=== PATIENT | male | born 1990 ===

== ENCOUNTER 2017-04-09 13:12 | Emergency (ER) | payer MEDICAID ==
[2017-04-09 13:13] VITALS: BMI 25.5
[2017-04-09 13:24] VITALS: TEMP 98.5; O2SAT 99
--- NOTE | 2017-04-09 13:27 | ED PDOC ---
Arrival/HPI <Devin Fleming P - Last Filed: 04/09/17 14:33> - General Historian: Patient - History of Present Illness Time/Duration: > week Symptom Onset: Gradual Symptom Course: Worsening Quality: Stabbing, Dullness Severity Level: Severe Context: Walking, Other (walking dog) <Levar Gregg - Last Filed: 04/09/17 15:20> - General Chief Complaint: Chest Pain Time Seen by Provider: 04/09/17 13:26 - History of Present Illness Narrative History of Present Illness (Text): 04/09/17 13:59 26yo M with no significant PMHx here for evaluation of right sided chest pain. Pain started 2 weeks ago, gradually getting worse. States that he walks his 60lb dog and does report that his dog jolted while he was on his leash and he started having this pain since. Pain starts in the right side of the chest, radiates to the right shoulder and right mid back. Has been gradually getting worse. Has tried taking an unknown muscle relaxant from his girlfriend, however , has not obtained any relief. Laying down flat on back, and raising right arm makes pain worse. Kaya any numbness or paresthesias. Denies SOB. No N/V/D. No Abd pain. Current pack per day smoker. PMHx: Denies PSHx: Denies Family Hx: Maternal - DM. Denies family cardiac history Social Hx: Current pack per day smoker for 14yrs. Social ETOH. Current marijuana use, no other illicit drugs. Works as taxi cab dispatcher. NKDA (Levar Gregg) Past Medical History - Provider Review Nursing Documentation Reviewed: Yes - Past History Past History: No Previous - Psychiatric Hx Psychophysiologic Disorder: No Hx Substance Use: Yes (daily marijuana) - Past Surgical History Past Surgical History: No Previous - Suicidal Assessment Feels Threatened In Home Enviroment: No <Levar Gregg - Last Filed: 04/09/17 15:20> Family/Social History - Physician Review Nursing Documentation Reviewed: Yes Family/Social History: Diabetes Smoking Status: Heavy Smoker > 10 Cigarettes Daily Hx Alcohol Use: Yes Frequency of alcohol use: Socially Hx Substance Use: Yes (daily marijuana) <Levar Gregg - Last Filed: 04/09/17 15:20> Allergies/Home Meds <Devin Fleming - Last Filed: 04/09/17 14:33> <Levar Gregg - Last Filed: 04/09/17 15:20> Allergies/Adverse Reactions: Allergies No Known Allergies Allergy (Verified 04/09/17 13:24) Review of Systems - Physician Review All systems were reviewed & negative as marked: Yes - Review of Systems Constitutional: Normal Eyes: Normal ENT: Normal Respiratory: Normal Cardiovascular: Chest Pain. absent: Palpitations, Calf Pain, ANNE, Syncope Gastrointestinal: absent: Abdominal Pain, Nausea, Vomiting Musculoskeletal: Back Pain, Myalgias. absent: Neck Pain, Joint Swelling Neurological: absent: Headache, Dizziness Endocrine: absent: Diaphoresis Psychiatric: absent: Anxiety, Depression <Antonina Greggnay - Last Filed: 04/09/17 15:20> Physical Exam Vital Signs Reviewed: Yes Temperature: Afebrile Blood Pressure: Normal Pulse: Regular Respiratory Rate: Normal Appearance: Positive for: Well-Appearing, Non-Toxic Pain Distress: Moderate Mental Status: Positive for: Alert and Oriented X 3 - Systems Exam Head: Present: Atraumatic, Normocephalic Pupils: Present: PERRL Extroacular Muscles: Present: EOMI Conjunctiva: Present: Normal Mouth: Present: Moist Mucous Membranes Respiratory/Chest: Present: Clear to Auscultation, Good Air Exchange, Tender to Palpation. No: Respiratory Distress, Accessory Muscle Use, Wheezes, Rales, Rhonchi Cardiovascular: Present: Regular Rate and Rhythm, Normal S1, S2. No: Murmurs Abdomen: No: Tenderness, Distention, Peritoneal Signs, Rebound, Guarding Back: Present: Paraspinal Tenderness (right mid back. No bony tenderness) Upper Extremity: Present: NORMAL PULSES, Neurovascularly Intact, Other ( Decreased right upper extremity active range of motion due to pain. Tender to palpation of right shoulder. ). No: Edema, Swelling, Temperature Abnormalties, Deformity Lower Extremity: Present: Normal Inspection. No: CALF TENDERNESS Neurological: Present: GCS=15 Skin: Present: Warm, Dry, Normal Color Psychiatric: Present: Alert, Oriented x 3 <MarysolLevar - Last Filed: 04/09/17 15:20> Vital Signs Temp Pulse Resp BP Pulse Ox 04/09/17 13:23 98.5 F 85 16 120/76 99 Medical Decision Making <Devin Fleming - Last Filed: 04/09/17 14:33> <Levar Gregg - Last Filed: 04/09/17 15:20> ED Course and Treatment: Patient Seen With Resident: In agreement with resident note which contains more details about the patient. Patient was seen and evaluated with resident. Came up with plan and treatment together. A 26 year old male with right sided chest pain. Additional HPI as noted by resident. On physical exam, patient has tender to palpation of chest, paraspinal tenderness of back, decreased right upper extremity range of motion and right shoulder tender to palpation. Ordered EKG, chest xray and will give Motrin and Toradol. (Devin Fleming) 04/09/17 14:24 26yo M with musculoskeletal chest pain, back pain, right shoulder pain - EKG - NSR @70. RBBB - CXR - Ibuprofen - Toradol - ice pack to affected area 04/09/17 15:13 CXR - no acute disease 04/09/17 15:14 Discussed findings with patient. All questions and concerns addressed. Patient given naproxyn and baclofen. Patient to follow up with his primary care physician. (Levar Gregg) - RAD Interpretation Radiology Orders: 04/09/17 13:47 CXR [CHEST TWO VIEWS (PA/LAT)] [RAD] Stat - Medication Orders Current Medication Orders: Discontinued Medications Ibuprofen (Motrin Tab) 400 mg PO STAT STA Stop: 04/09/17 13:39 Last Admin: 04/09/17 13:46 Dose: 400 mg Ketorolac Tromethamine (Toradol) 15 mg IM STAT STA Stop: 04/09/17 13:55 Last Admin: 04/09/17 14:26 Dose: 15 mg - Scribe Statement The provider has reviewed the documentation as recorded by the Scribe <Devin Fleming - Last Filed: 04/09/17 14:33> - PA / PROFESSIONAL [employer] / Resident Statement / has reviewed & agrees with the documentation as recorded. / has examined the patient and agrees with the treatment plan. <Levar Gregg - Last Filed: 04/09/17 15:20> - Scribe Statement Alexandra Magana Provider Scribe Attestation: All medical record entries made by the Scribe were at my direction and personally dictated by me. I have reviewed the chart and agree that the record accurately reflects my personal performance of the history, physical exam, medical decision making, and the department course for this patient. I have also personally directed, reviewed, and agree with the discharge instructions and disposition. (Devin Fleming) Disposition/Present on Arrival <Devin Fleming - Last Filed: 04/09/17 14:33> - Present on Arrival Any Indicators Present on Arrival: No History of DVT/PE: No History of Uncontrolled Diabetes: No Urinary Catheter: No History of Decub. Ulcer: No History Surgical Site Infection Following: None - Disposition Have Diagnosis and Disposition been Completed?: Yes Disposition Time: 15:15 Patient Plan: Discharge <Levar Gregg - Last Filed: 04/09/17 15:20> - Disposition Diagnosis: Musculoskeletal chest pain Disposition: HOME/ ROUTINE Condition: GOOD Discharge Instructions (ExitCare): Chest Pain (ED) Additional Instructions: 1. Follow up with your Primary care physician within 3 days. 2. Use Naproxyn as directed as needed for pain 3. Rest, Ice 4. Use Muscle relaxants as needed for muscle spasm 5. Return to the ER with any concerning symptoms Prescriptions: Baclofen [Lioresal] 10 mg PO TID PRN #15 tab PRN Reason: Muscle Spasm Naproxen 500 mg PO BID #14 tab Referrals: PCP,NO [Primary Care Provider] - Follow up with primary Forms: [employer] ([place]an), WORK NOTE
[2017-04-09 15:44] VITALS: BP 119/74; PULSE 80; RESP 18
--- NOTE | 2017-04-09 16:09 | RAD ---
HISTORY: Chest and shoulder pain. No history of trauma COMPARISON: No prior. TECHNIQUE: Chest PA and lateral FINDINGS: LUNGS: No active pulmonary disease. PLEURA: No significant pleural effusion identified. No pneumothorax apparent. CARDIOVASCULAR: Normal. OSSEOUS STRUCTURES: No significant abnormalities. VISUALIZED UPPER ABDOMEN: Normal. OTHER FINDINGS: None. IMPRESSION: No active disease. No preliminary report provided by emergency department personnel.
--- NOTE | 2017-04-10 13:22 | CARD ---
APPROVED REPORT EKG Measurement Heart [id number] <Conclusion> Normal sinus rhythm Right bundle branch block Abnormal ECG
== END 2017-04-09 15:46 | disposition home or self-care (01) ==
LOC: ED 13:12
DX: R07.89 Other chest pain (principal)
CPT/HCPCS: 71020; 93005; 96372; 99283; J1885